=== PATIENT | male | born 1965 | race Caucasian/White ===

== ENCOUNTER 2018-10-26 09:19 | Inpatient (IN) | payer OTHER ==
[~2018-10-26] VITALS: Ht 188 cm; Wt 127.0 kg
[2018-10-26 10:49] LABS: BASOPHIL % 0.4 % (0-2); PLATELET COUNT 217 x10^3mcL (130-400); RED CELL DISTRIBUTION WIDTH 13.1 % (11.5-14.5)
[2018-10-26 10:58] LABS: CALCIUM 9.3 mg/dL (8.5-10.1); CARBON DIOXIDE 29.3 mmol/L (21-32); CHLORIDE SERUM 104 mmol/L (98-107); CREATININE SERUM 1.2 mg/dL (0.7-1.3); GFR1 > 60 mL/min; GLUCOSE SERUM 104 mg/dL (74-106); POTASSIUM SERUM 4.3 mmol/L (3.5-5.1); SODIUM SERUM 137 mmol/L (136-145)
[2018-10-26] MEDS ORDERED: HYZAAR1 TA2 (11:00)
[2018-10-26] MEDS ORDERED: METFORMIN HYDR500 M1 PO (11:00)
[2018-10-26 11:03] LABS: ALBUMIN 3.6 g/dL (3.4-5.0); ALKALINE PHOSPHATASE 92 U/L (46-116); ALT/SGPT 48 U/L (16-63); AST/SGOT 21 U/L (15-37); BILIRUBIN TOTAL 0.3 mg/dL (0.20-1.00)
[2018-10-26 12:54] LABS: AMPHETAMINE QUAL UR NONE DETECTED (See below)
[2018-10-26 14:35] VITALS: BP 119/84
[2018-10-26 15:43] VITALS: BP 119/84
== END 2018-10-26 17:00 | disposition left against medical advice (07) | DRG 100 ==
LOC: ED 09:19 → DU 13:05
PROVIDERS: Emergency Medicine; ADMIT General Practice
DX: G40.909 Epilepsy, unspecified, not intractable, without status epilepticus (principal); G93.41 Metabolic encephalopathy; E11.9 Type 2 diabetes mellitus without complications; I10 Essential (primary) hypertension; J45.909 Unspecified asthma, uncomplicated; F31.9 Bipolar disorder, unspecified; T42.76XA Underdosing of unspecified antiepileptic and sedative-hypnotic drugs, initial encounter; G93.0 Cerebral cysts; G83.84 Todd's paralysis (postepileptic); Z79.84 Long term (current) use of oral hypoglycemic drugs; Z72.0 Tobacco use; Z91.128 Patient's intentional underdosing of medication regimen for other reason; Y92.009 Unspecified place in unspecified non-institutional (private) residence as the place of occurrence of the external cause
CPT/HCPCS: 82962; J1165; J2060

== ENCOUNTER 2018-10-27 01:34 | Emergency (ER) | payer OTHER ==
[~2018-10-27] VITALS: Ht 185.4 cm; Wt 131.5 kg
[~2018-10-27 01:34] MED LIST: HYZAAR1 TA2; METFORMIN HYDR500 M1 PO
[2018-10-27 01:39] VITALS: Ht 185.4 cm; Wt 131.5 kg
[2018-10-27 02:19] LABS: BASOPHIL % 0.6 % (0-2); PLATELET COUNT 201 x10^3mcL (130-400); RED CELL DISTRIBUTION WIDTH 13.6 % (11.5-14.5)
[2018-10-27 02:22] LABS: CALCIUM 8.4 mg/dL (8.5-10.1); CARBON DIOXIDE 24.5 mmol/L (21-32); CHLORIDE SERUM 106 mmol/L (98-107); CREATININE SERUM 1.2 mg/dL (0.7-1.3); GFR1 > 60 mL/min; GLUCOSE SERUM 149 mg/dL (74-106); POTASSIUM SERUM 4.3 mmol/L (3.5-5.1); SODIUM SERUM 139 mmol/L (136-145)
[2018-10-27 02:26] LABS: ALKALINE PHOSPHATASE 98 U/L (46-116); ALT/SGPT 45 U/L (16-63); AST/SGOT 21 U/L (15-37); BILIRUBIN TOTAL 0.22 mg/dL (0.20-1.00); TOTAL PROTEIN, SERUM 6.9 g/dL (6.4-8.2)
[2018-10-27 02:30] LABS: ALBUMIN 3.3 g/dL (3.4-5.0)
[2018-10-27 03:53] VITALS: BP 141/98
[2018-10-27 04:19] LABS: AMPHETAMINE QUAL UR NONE DETECTED (See below)
== END 2018-10-27 04:37 | disposition home or self-care (01) ==
LOC: ED 01:34
PROVIDERS: Emergency Medicine
DX: R56.9 Unspecified convulsions (principal); F17.200 Nicotine dependence, unspecified, uncomplicated; J45.909 Unspecified asthma, uncomplicated; I10 Essential (primary) hypertension; E11.9 Type 2 diabetes mellitus without complications; F31.9 Bipolar disorder, unspecified
CPT/HCPCS: 82962; 99406; J1885; J7030

== ENCOUNTER 2018-12-06 11:09 | Emergency (ER) | payer OTHER ==
[~2018-12-06] VITALS: Ht 185.4 cm; Wt 138.8 kg
[2018-12-06 11:18] VITALS: Ht 185.4 cm; Wt 138.8 kg
[2018-12-06 13:05] LABS: BASOPHIL % 0.8 % (0-2); PLATELET COUNT 166 x10^3mcL (130-400); RED CELL DISTRIBUTION WIDTH 14.2 % (11.5-14.5)
[2018-12-06 13:29] LABS: CALCIUM 8.8 mg/dL (8.5-10.1); CARBON DIOXIDE 27.3 mmol/L (21-32); CREATININE SERUM 1.6 mg/dL (0.7-1.3); POTASSIUM SERUM 4.6 mmol/L (3.5-5.1)
[2018-12-06 13:34] LABS: ALBUMIN 3.4 g/dL (3.4-5.0); BILIRUBIN TOTAL 0.1 mg/dL (0.20-1.00)
[2018-12-06 14:25] VITALS: BP 105/76
== END 2018-12-06 14:25 | disposition home or self-care (01) ==
LOC: ED 11:09
PROVIDERS: Emergency Medicine
DX: R07.89 Other chest pain (principal); F41.9 Anxiety disorder, unspecified; I10 Essential (primary) hypertension; E11.9 Type 2 diabetes mellitus without complications; J45.909 Unspecified asthma, uncomplicated; F31.9 Bipolar disorder, unspecified
CPT/HCPCS: 36415; Q0092

== ENCOUNTER 2019-06-09 09:48 | Emergency (ER) | payer OTHER, MEDICAID ==
[~2019-06-09] VITALS: Ht 185.4 cm; Wt 144.7 kg
[2019-06-09 10:01] VITALS: Ht 185.4 cm; Wt 144.7 kg
[2019-06-09 11:28] VITALS: BP 142/84
== END 2019-06-09 11:28 | disposition home or self-care (01) ==
LOC: ED 09:48
DX: M54.5 Low back pain (principal); G89.29 Other chronic pain; F17.210 Nicotine dependence, cigarettes, uncomplicated; E66.9 Obesity, unspecified; I10 Essential (primary) hypertension; E11.9 Type 2 diabetes mellitus without complications; F31.9 Bipolar disorder, unspecified; Z68.41 Body mass index [BMI] 40.0-44.9, adult
CPT/HCPCS: 99406; J2270; J7512; Q0162

== ENCOUNTER 2019-07-26 15:44 | Emergency (ER) | payer OTHER ==
[~2019-07-26] VITALS: Ht 185.4 cm; Wt 144.2 kg
[2019-07-26 15:49] VITALS: Ht 185.4 cm; Wt 144.2 kg
[2019-07-26 16:31] LABS: PLATELET COUNT 182 x10^3mcL (130-400); RED CELL DISTRIBUTION WIDTH 14.1 % (11.5-14.5)
[2019-07-26 16:39] LABS: CALCIUM 8.6 mg/dL (8.5-10.1); CARBON DIOXIDE 27.5 mmol/L (21-32); CHLORIDE SERUM 104 mmol/L (98-107); CREATININE SERUM 1.1 mg/dL (0.7-1.3); GFR1 > 60 mL/min; GLUCOSE SERUM 95 mg/dL (74-106); POTASSIUM SERUM 4.1 mmol/L (3.5-5.1); SODIUM SERUM 142 mmol/L (136-145)
[2019-07-26 16:43] LABS: ALBUMIN 3.5 g/dL (3.4-5.0); ALKALINE PHOSPHATASE 73 U/L (46-116); ALT/SGPT 49 U/L (16-63); AST/SGOT 23 U/L (15-37); BILIRUBIN TOTAL 0.17 mg/dL (0.20-1.00); LIPASE 107 IU/L (73-393); TOTAL PROTEIN, SERUM 7.2 g/dL (6.4-8.2)
[2019-07-26 19:48] VITALS: BP 118/78
== END 2019-07-26 19:48 | disposition home or self-care (01) ==
LOC: ED 15:44
PROVIDERS: Emergency Medicine
DX: K80.20 Calculus of gallbladder without cholecystitis without obstruction (principal); I10 Essential (primary) hypertension; E11.9 Type 2 diabetes mellitus without complications; F31.9 Bipolar disorder, unspecified; J45.909 Unspecified asthma, uncomplicated
CPT/HCPCS: 36415; 83880; 85378; J1885; J3010; Q0092

== ENCOUNTER 2019-09-20 17:30 | Emergency (ER) | payer OTHER ==
[~2019-09-20] VITALS: Ht 185.4 cm; Wt 136.5 kg
[2019-09-20 17:33] VITALS: BP 153/101; Ht 185.4 cm; Wt 136.5 kg
[2019-09-20 18:58] LABS: BASOPHIL % 0.2 % (0-2); PLATELET COUNT 212 x10^3mcL (130-400); RED CELL DISTRIBUTION WIDTH 13.6 % (11.5-14.5)
[2019-09-20 19:06] LABS: CALCIUM 8.8 mg/dL (8.5-10.1); CARBON DIOXIDE 28.7 mmol/L (21-32); CHLORIDE SERUM 101 mmol/L (98-107); CREATININE SERUM 0.9 mg/dL (0.7-1.3); GFR1 > 60 mL/min; GLUCOSE SERUM 109 mg/dL (74-106); POTASSIUM SERUM 3.5 mmol/L (3.5-5.1); SODIUM SERUM 138 mmol/L (136-145)
[2019-09-20 19:11] LABS: ALBUMIN 3.4 g/dL (3.4-5.0); ALKALINE PHOSPHATASE 63 U/L (46-116); ALT/SGPT 31 U/L (16-63); AST/SGOT 21 U/L (15-37); BILIRUBIN TOTAL 0.7 mg/dL (0.20-1.00); TOTAL PROTEIN, SERUM 7.7 g/dL (6.4-8.2)
== END 2019-09-20 19:00 | disposition left against medical advice (07) ==
LOC: ED 17:30
DX: I21.4 Non-ST elevation (NSTEMI) myocardial infarction (principal); F17.210 Nicotine dependence, cigarettes, uncomplicated; J45.909 Unspecified asthma, uncomplicated; I10 Essential (primary) hypertension; E11.9 Type 2 diabetes mellitus without complications; G89.29 Other chronic pain; R10.12 Left upper quadrant pain; R11.2 Nausea with vomiting, unspecified
CPT/HCPCS: 36415

== ENCOUNTER 2019-12-19 20:34 | Emergency (ER) | payer OTHER ==
[~2019-12-19] VITALS: Ht 185.4 cm; Wt 142.1 kg
[2019-12-19 20:39] VITALS: Ht 185.4 cm; Wt 142.1 kg
[2019-12-19 22:55] VITALS: BP 132/91
== END 2019-12-19 22:55 | disposition home or self-care (01) ==
LOC: ED 20:34
DX: M47.898 Other spondylosis, sacral and sacrococcygeal region (principal); E11.9 Type 2 diabetes mellitus without complications; J45.909 Unspecified asthma, uncomplicated
CPT/HCPCS: J1885

== ENCOUNTER 2019-12-27 13:13 | Emergency (ER) | payer OTHER ==
[~2019-12-27] VITALS: Ht 185.4 cm; Wt 141.5 kg
[2019-12-27 13:21] VITALS: BP 93/69; Ht 185.4 cm; Wt 141.5 kg
== END 2019-12-27 14:07 | disposition left against medical advice (07) ==
LOC: ED 13:13
DX: M54.5 Low back pain (principal); Z53.21 Procedure and treatment not carried out due to patient leaving prior to being seen by health care provider

== ENCOUNTER 2020-07-24 18:23 | Emergency (ER) | payer OTHER, MEDICAID ==
[~2020-07-24] VITALS: Ht 185.4 cm; Wt 143.3 kg
[2020-07-24 18:37] VITALS: Ht 185.4 cm; Wt 143.3 kg
[2020-07-24 19:54] VITALS: BP 118/71
== END 2020-07-24 19:54 | disposition home or self-care (01) ==
LOC: ED 18:23
DX: M54.41 Lumbago with sciatica, right side (principal); J45.909 Unspecified asthma, uncomplicated; I10 Essential (primary) hypertension; E11.9 Type 2 diabetes mellitus without complications
CPT/HCPCS: J1885